=== PATIENT | male | born 1990 | race Two or more races ===

== ENCOUNTER 2024-05-15 23:59 | Emergency (ER) | payer OTHER ==
[~2024-05-15] VITALS: Ht 188 cm; Wt 110.0 kg
[2024-05-16 00:25] VITALS: BP 128/101; PULSE 117; RESP 20; O2SAT 99
[2024-05-16] MEDS ORDERED: DONNATAL 5ml ORAL Elix (BELLADONNA ALK-PHENOBARB) PO ONE (01:00)
[2024-05-16] MEDS ORDERED: MAALOX PLUS or MAALOX 30 ML PO ONE (01:00)
[2024-05-16] MEDS ORDERED: LIDOCAINE VISCOUS 2% 15ML UD PO ONE (01:00)
== END 2024-05-16 01:26 | disposition left against medical advice (07) ==
LOC: ER 23:59
DX: R10.9 Unspecified abdominal pain (principal); R11.0 Nausea; F17.210 Nicotine dependence, cigarettes, uncomplicated